=== PATIENT | female | born 1950 | race Caucasian/White ===

== ENCOUNTER → 2021-01-28 01:07 | Outpatient (CLI) | payer MEDICARE, OTHER, SELFPAY ==
[2021-01-28 17:56] LABS: SARS-CoV-2 RNA PCR Negative
== END ==
PROVIDERS: Visit Provider Internal Medicine Gastroenterology
DX: Z01.812 Encounter for preprocedural laboratory examination (principal); Z20.822 Contact with and (suspected) exposure to COVID-19
CPT/HCPCS: C9803; U0003; U0005

== ENCOUNTER 2021-01-31 01:59 | Day surgery (SDC) | payer MEDICARE, OTHER, SELFPAY ==
[2021-01-23 09:50] VITALS: BMI 29.2
--- NOTE | 2021-01-31 07:54 | WPDANESEPPF ---
Anes - Initial Pre Proc Eval Procedure: Operation Date: 01/31/21 09:00 Proposed Procedures p Esophagogastroduodenoscopy & Colonoscopy - Matty Gonsalez MD Date/Time: 01/31/21 07:54 Surgeon: Matty Gonsalez MD Pre Op Diagnosis: GERD, family hx colon CA Patient Data Age: 70 Gender: F Height: 1.52 m Weight: 68 kg Allergies Allergy/AdvReac Type Severity Reaction Status Date / Time scallops Allergy Intermediate Nausea and Verified 01/31/21 08:15 Vomiting Home Medications Medication Instructions Recorded Confirmed Type atorvastatin 20 mg tablet 20 mg PO DAILY 12/13/20 01/31/21 History calcium carbonate 400 mg calcium 400 mg PO BID tablet 12/13/20 01/31/21 History (1,000 mg) chewable tablet famotidine 10 mg tablet 10 mg PO .PRN tablet 12/13/20 01/31/21 History ketoconazole 2 % topical cream 1 applic TOPICAL .PRN g 12/13/20 01/31/21 History magnesium gluconate 500 mg tablet 500 mg PO DAILY 12/13/20 01/31/21 History mecobalamin (vitamin B12) 1,000 1,000 mcg PO DAILY 12/13/20 01/31/21 History mcg chewable tablet nitroglycerin 0.4 mg sublingual 0.4 mg SUBLINGUAL Q5M PRN 12/13/20 01/31/21 History tablet omeprazole 20 mg capsule,delayed 20 mg PO DAILY 12/13/20 01/31/21 History release oxybutynin chloride 5 mg tablet 5 mg PO DAILY 12/13/20 01/31/21 History prednisone 2.5 mg tablet 2.5 mg PO DAILY 12/13/20 01/31/21 History triamcinolone acetonide 0.1 % 1 applic TOPICAL .prn g 12/13/20 01/31/21 History topical cream sodium,potassium,mag sulfates 17.5 See Rx Instructions PO .COMPLEX 01/10/21 01/31/21 Rx gram-3.13 gram-1.6 gram oral soln #354 ml cholecalciferol (vitamin D3) 25 mcg PO DAILY 01/23/21 01/31/21 History [Vitamin D3] ergocalciferol (vitamin D2) 50,000 unit PO MONTHLY 01/23/21 01/31/21 History Patient hx anesthesia problems: none Family hx anesthesia problems: none [facility] Past Medical History Medical History (Updated 01/31/21 @ 07:56 by Qasim Valdez MD) Chronic GERD Diverticulosis Hyperlipidemia Overweight (BMI 25.0-29.9) Social History Social History (Updated 12/13/20 @ 11:04 by Diamond Bustamante CMA) Smoking status: Never smoker Alcohol intake: current Substance use: never Substance use type: does not use Living arrangements: with family Spiritual care concerns: No Anes - Eval Final PreProcedure Day of Procedure 01/31/21 07:54 Patient weight: overweight Heart: regular rate and rhythm Lungs: clear to auscultation and normal air movement Airway: Mallampati scale class II Neurological: alert and oriented Last oral intake: >/= 8 hours ASA classification: II Emergent: no Anesthetic plan: proceed Anesthesia type and monitoring: general GIVS Informed Consent: The patient's anesthetic plan and its attendant risks and benefits were discussed with the patient/family/POA. Questions were solicited and answers provided to the satisfaction of the patient/family/POA.
[2021-01-31 08:22] VITALS: BP 124/78; PULSE 64; RESP 18; TEMP 36.2; O2SAT 98; BMI 28.7
[2021-01-31] MEDS: LACTATED RINGERS 1,000 ML 150 ML IV CONT (08:34)
--- NOTE | 2021-01-31 08:44 | WPDGICN ---
Assessment and Plan Assessment and plan (1) Chronic GERD: Code(s): K21.9 - Gastro-esophageal reflux disease without esophagitis Status: Acute Assessment and Plan: Patient has had episodes of chest pain which has responded to omeprazole. This consistent with GE reflux disease. Plan is for EGD to exclude any other conditions. Continuing PPI and anti-reflux measures and is encouraged in the antrum. (2) Family history of colon cancer in father: Code(s): Z80.0 - Family history of malignant neoplasm of digestive organs Status: Acute Assessment and Plan: Patient's father has had colon cancer. For this reason surveillance colonoscopy now on a 5 year intervals is advised. GI Consult Note Consult date/time: 01/31/21 08:44 HPI: Annie Schroeder is a 70 year old female presents for EGD and colonoscopy. Patient has had episodes of substernal chest pain. This has improved with omeprazole 20 mg p.o. daily. Suspicion is that she has acid reflux for this reason EGD scheduled. Patient denies any dysphagia. She has had no weight loss. She has had no bleeding. Pain appears improved on starting this new medication. Because of the new pain prompting her to go the ER EGD is requested. Family history is significant her father had colon cancer. Patient's last colonoscopy was 2007. For this reason follow-up colonoscopy is planned today. Patient states that her current weight appetite bowel movements are normal. She has had no bleeding. Review of Systems Review of Systems: All systems reviewed & are unremarkable except as noted in HPI and below PMFSH Past Medical History Medical History Chronic GERD Diverticulosis Hyperlipidemia Overweight (BMI 25.0-29.9) Social History Social History (Updated 12/13/20 @ 11:04 by Diamond Bustamante CMA) Smoking status: Never smoker Alcohol intake: current Substance use: never Substance use type: does not use Living arrangements: with family Spiritual care concerns: No Meds Home Medications and Allergies Home Medications Medication Instructions Recorded Confirmed Type atorvastatin 20 mg tablet 20 mg PO DAILY 12/13/20 01/31/21 History calcium carbonate 400 mg calcium 400 mg PO BID tablet 12/13/20 01/31/21 History (1,000 mg) chewable tablet famotidine 10 mg tablet 10 mg PO .PRN tablet 12/13/20 01/31/21 History ketoconazole 2 % topical cream 1 applic TOPICAL .PRN g 12/13/20 01/31/21 History magnesium gluconate 500 mg tablet 500 mg PO DAILY 12/13/20 01/31/21 History mecobalamin (vitamin B12) 1,000 1,000 mcg PO DAILY 12/13/20 01/31/21 History mcg chewable tablet nitroglycerin 0.4 mg sublingual 0.4 mg SUBLINGUAL Q5M PRN 12/13/20 01/31/21 History tablet omeprazole 20 mg capsule,delayed 20 mg PO DAILY 12/13/20 01/31/21 History release oxybutynin chloride 5 mg tablet 5 mg PO DAILY 12/13/20 01/31/21 History prednisone 2.5 mg tablet 2.5 mg PO DAILY 12/13/20 01/31/21 History triamcinolone acetonide 0.1 % 1 applic TOPICAL .prn g 12/13/20 01/31/21 History topical cream sodium,potassium,mag sulfates 17.5 See Rx Instructions PO .COMPLEX 01/10/21 01/31/21 Rx gram-3.13 gram-1.6 gram oral soln #354 ml cholecalciferol (vitamin D3) 25 mcg PO DAILY 01/23/21 01/31/21 History [Vitamin D3] ergocalciferol (vitamin D2) 50,000 unit PO MONTHLY 01/23/21 01/31/21 History Allergies Allergy/AdvReac Type Severity Reaction Status Date / Time scallops Allergy Intermediate Nausea and Verified 01/31/21 08:15 Vomiting Vital Signs Vital Signs - 24 hr 01/31/21 08:22 Temperature 97.2 F L Pulse Rate 64 Respiratory Rate 18 Blood Pressure 124/78 Pulse Oximetry 98 Exam Narrative: Exam Narrative: Physical exam reveals patient be alert. Vital signs stable. HEENT exam is unremarkable. Patient is anicteric. Lungs are clear to auscultation and percussion. Heart is withou
[2021-01-31 09:29] VITALS: BP 134/65; PULSE 80; RESP 20; O2SAT 100
[2021-01-31 09:39] VITALS: BP 119/66; PULSE 86; RESP 22; O2SAT 100
[2021-01-31 09:49] VITALS: BP 112/65; PULSE 82; RESP 20; O2SAT 100
--- NOTE | 2021-01-31 10:32 | SUR.PHASEII ---
0940: DR OSORIO STATED TO THIS RN PT'S CT THAT IS ORDERED IS TO BE TAKEN CARE OF BY HIS OFFICE AND THEY WILL SET IT UP, PT IS NOT TO HAVE CT SCAN COMPLETED TODAY. PT MADE AWARE AND STATES UNDERSTANDING.
== END 2021-01-31 10:15 | disposition home or self-care (01) ==
PROVIDERS: PCP Emergency Medicine; Visit Provider Internal Medicine Gastroenterology
PROC: 0DJ08ZZ Inspection of Upper Intestinal Tract, Via Natural or Artificial Opening Endoscopic (ICD-10-PCS; CPT 43235; principal; 2021-01-31 09:00)
DX: Z12.11 Encounter for screening for malignant neoplasm of colon (principal); D12.4 Benign neoplasm of descending colon; D12.5 Benign neoplasm of sigmoid colon; K63.5 Polyp of colon; Z80.0 Family history of malignant neoplasm of digestive organs; K21.9 Gastro-esophageal reflux disease without esophagitis; R07.89 Other chest pain; K22.2 Esophageal obstruction; E78.5 Hyperlipidemia, unspecified
CPT/HCPCS: 45385; 43239; 87081; 88305; J2704; J7120

== ENCOUNTER 2021-02-24 08:23 | Outpatient (CLI) | payer MEDICARE, OTHER, SELFPAY ==
--- NOTE | ~2021-02-24 | CT_ITS ---
EXAMINATION:CT diagnostic chest w con DATE: 02/24/2021 09:12 INDICATION: Esophageal stricture. TECHNIQUE: Computed tomography (CT) of the chest was performed with 75 mL Omnipaque 350 intravenous c ontrast. Automated exposure control and iterative reconstruction technique were employed. The dose-le ngth product (DLP) was 153.06 mGy-cm. COMPARISON: None. FINDINGS: The lungs demonstrate mild atelectasis. There is a 1.5 cm nodule in left lower lobe. Calcif ied right lung nodules and calcified right hilar and mediastinal lymph nodes are consistent with old granulomatous disease. The heart size is normal. No pericardial effusion. Partially visualized is a 9 .6 cm cyst in right kidney. Calcifications in the spleen are consistent with old granulomatous diseas e. There is mild thoracic spondylosis. IMPRESSION: 1. 1.5 cm left lower lobe pulmonary nodule suspicious for primary bronchogenic carcinoma. CT-guided b iopsy is recommended. Reviewed, dictated and finalized at location A. IMPRESSION: 1. 1.5 cm left lower lobe pulmonary nodule suspicious for primary bronchogenic carcinoma. CT-guided biopsy is recommended.
[2021-02-24 09:02] LABS: Estimated Glomerular Filt Rate > 60
== END 2021-02-24 08:24 | disposition home or self-care (01) ==
LOC: ANHIMG 08:29
PROVIDERS: PCP Emergency Medicine; Visit Provider Internal Medicine Gastroenterology
DX: K22.2 Esophageal obstruction (principal); R91.8 Other nonspecific abnormal finding of lung field
CPT/HCPCS: 71260; Q9967